=== PATIENT | female | born 1995 | race Caucasian/White ===

== ENCOUNTER 2019-01-09 11:27 | Emergency (ER) | payer BC ==
--- NOTE | 2019-01-09 11:36 | EDM.PDOC ---
ED HPI GENERAL MEDICAL PROBLEM - General Chief Complaint: Lower Extremity Injury/Pain Stated Complaint: RIGHT LEG INJURY Time Seen by Provider: 01/09/19 11:36 Source of Information: Reports: Patient History Limitations: Reports: No Limitations - History of Present Illness INITIAL COMMENTS - FREE TEXT/NARRATIVE: 23-year-old female presents to the ED with an acute injury to her right lateral foot. She states she was walking down a flight of stairs and missed the last one landing hard on her lateral right foot. She then did fall to the ground on top of it. She denies any other injuries. Injury just occurred within the last half hour. Is already markedly ecchymotic along the lateral aspect of her right foot. She cannot weight-bear. Onset: Today Onset Date: 01/09/19 Onset Time: 11:00 Duration: Minutes: Location: Reports: Lower Extremity, Right (Right lateral foot) Quality: Reports: Ache, Throbbing Severity: Moderate Improves with: Reports: Rest Worsens with: Reports: Movement (Trying to weight-bear) Context: Reports: Trauma (Inversion injury when she missed the last stair and then fell on top of it.). Denies: Activity, Exercise, Lifting, Sick Contact Associated Symptoms: Reports: No Other Symptoms Treatments KENNEL HAND: Reports: NSAIDS (She had taken a Motrin 600 mg just prior to the injury.) Right Feet Pain Score (Numeric/FACES): 2 - Related Data Allergies Allergy/AdvReac Type Severity Reaction Status Date / Time bee venom protein (honey bee) Allergy Cannot Verified 01/09/19 11:35 Remember Penicillins Allergy Cannot Verified 01/09/19 11:35 Remember Home Meds: Home Meds Control 1 tab PO DAILY 01/09/19 [History] Citalopram [Citalopram HBr] 20 mg PO DAILY 01/09/19 [History] Past Medical History Psychiatric History: Reports: Anxiety, Depression Review of Systems - Review of Systems Review Of Systems: See Below Constitutional: Reports: No Symptoms Eyes: Reports: No Symptoms Ears: Reports: No Symptoms Nose: Reports: No Symptoms Mouth/Throat: Reports: No Symptoms Respiratory: Reports: No Symptoms Cardiovascular: Reports: No Symptoms GI/Abdominal: Reports: No Symptoms Genitourinary: Reports: No Symptoms Musculoskeletal: Reports: Foot Pain (Right lateral foot pain see history of present illness) Skin: Reports: Bruising Neurological: Reports: No Symptoms (Marked ecchymoses right lateral foot.) Psychiatric: Reports: Depression, Anxiety ED EXAM, GENERAL - Physical Exam Exam: See Below (On citalopram and it's helping for this.) Exam Limited By: No Limitations General Appearance: Alert, WD/WN, Mild Distress Extremities: Other (Examination was limited to her right lower extremity below the knee. There is no pain on from compression of the head of the fibula. No pain in the ankle on from compression of mid shaft tib-fib. Ankle itself also shows no pain on from compression over the lateral and medial malleoli. There is marked ecchymosis and swelling over the fifth metatarsal head.) Neurological: Alert, Oriented, CN II-XII Intact, Normal Cognition Psychiatric: Normal Affect, Normal Mood Skin Exam: Warm, Dry, Intact, Normal Color, No Rash Course - Vital Signs Last Recorded V/S: Last Vital Signs Temp 36.6 C 01/09/19 11:35 Pulse 82 01/09/19 11:35 Resp 16 01/09/19 11:35 BP 147/77 H 01/09/19 11:35 Pulse Ox 99 01/09/19 11:35 - Orders/Labs/Meds Orders: Active Orders 24 hr Category Date Time Status Foot Comp Min 3V Rt [CR] Stat Exams 01/09/19 11:39 Taken - Radiology Interpretation Free Text/Narrative:: 23-year-old female presents the ED with an acute injury to her right lateral foot. She states she was walking down stairs and inverted her foot on the last stair and this caused her to fall on top of her own leg. She has marked pain and swelling over the fifth metatarsal head. Patient heard a loud crack when she fell. And tib-fib appear to be otherwise intact. And three-view x-ray of the right foot to be done. Strep Motrin 600 mg prior to the injury. - Re-Assessments/Exams Free Text/Narrative Re-Assessment/Exam: 01/09/19 12:08 x-rays confirm a nondisplaced fracture through the base of the fifth metatarsal. Therefore I placed her in a posterior slab Ortho-Glass splint. He'll be nonweightbearing crutch walking. She will elevate the foot is much as possible and ice pack over the splint today and tomorrow. She'll phone Dr. Fortune's office tomorrow to arrange a follow-up appointment for cast placement later this week. She will use Motrin 600 mg every 6 hours needed for pain relief. Departure - Departure Time of Disposition: 12:10 Disposition: Home, Self-Care 01 Condition: Fair Clinical Impression: Fracture of metatarsal bone of right foot Qualifiers: Encounter type: initial encounter Metatarsal bone: fifth Fracture type: closed Fracture alignment: nondisplaced Qualified Code(s): S92.354A - Nondisplaced fracture of fifth metatarsal bone, right foot, initial encounter for closed fracture - Discharge Information *PRESCRIPTION DRUG MONITORING PROGRAM REVIEWED*: Not Applicable *COPY OF PRESCRIPTION DRUG MONITORING REPORT IN PATIENT PATRICK: Not Applicable Referrals: Herminia Parks NP [Primary Care Provider] - Forms: ED Department Discharge Additional Instructions: Evaluation the emergent today in regards to acute injury to your right lateral foot when he missed a stair and inverted her ankle causing the foot to come in direct contact with stair. X-ray reveals a hairline fracture through the fifth metatarsal head. It is undisplaced. It is therefore Ortho-Glass splint to maintain current position of this bone until the cast to be put on in 3 or 4 days with the swelling goes down. Elevate the foot is much as possible for the next couple of days. Ice pack to the area for one half hour out of every 4 hours for 2 days to reduce swelling. 600 mg every 6 hours needed for pain relief. Nonweightbearing crutch walking until today otherwise. Please phone Dr. Fortune's office-- orthopedic surgeon tomorrow morning at [phone] to arrange an appointment to have a cast placed later this week. To just wearing a large wool stocking over top of your toes during the winter months. - My Orders Last 24 Hours: My Active Orders 01/09/19 11:39 Foot Comp Min 3V Rt [CR] Stat - Assessment/Plan Last 24 Hours: My Active Orders 01/09/19 11:39 Foot Comp Min 3V Rt [CR] Stat
--- NOTE | 2019-01-09 14:29 | CR ---
Right foot: Four views of the right foot. Comparison: No prior foot exam. Nondisplaced fracture is identified within the base of the fifth metatarsal. No additional fracture or other bony abnormality is seen. Impression: 1. Fifth metatarsal fracture as noted above. Diagnostic code #3
== END 2019-01-09 13:00 | disposition home or self-care (01) ==
LOC: JD.ED 11:27
DX: S92.354A Nondisplaced fracture of fifth metatarsal bone, right foot, initial encounter for closed fracture (principal); F41.9 Anxiety disorder, unspecified; F32.9 Major depressive disorder, single episode, unspecified; W10.9XXA Fall (on) (from) unspecified stairs and steps, initial encounter; Z79.3 Long term (current) use of hormonal contraceptives; Z79.899 Other long term (current) drug therapy
CPT/HCPCS: 29515; 73630-26-RT; 73630-RT; 99283; 99283-25

== ENCOUNTER 2019-03-11 15:24 | Emergency (ER) | payer BC ==
[2019-03-11] MEDS ORDERED: LORazepam 0.5 MG Tab PO ONE (16:06)
[2019-03-11] MEDS ORDERED: Ondansetron 4 MG Tab.DIS PO ONE (16:06)
--- NOTE | 2019-03-11 16:22 | EDM.PDOCBH ---
ED HPI GENERAL MEDICAL PROBLEM - General Chief Complaint: General Stated Complaint: MAYBE A PANIC ATTACK Time Seen by Provider: 03/11/19 15:44 Source of Information: Reports: Patient, RN Notes Reviewed History Limitations: Reports: No Limitations - History of Present Illness INITIAL COMMENTS - FREE TEXT/NARRATIVE: Patient is a 24-year-old female who presents to the ED for the evaluation of a possible anxiety attack. The patient states that this started approximately half hour ago, this come on sudden. The patient states that she has been trying to eat more healthy, and has not eaten a whole lot today as well. She notes that she did vomit once on the way to the ER. She feels her hands and legs are tingly, and that her extremities were becoming numb. The mother is present, and states that she did have some coffee this morning, and the patient has had-like episodes with this while drinking coffee. The patient notes that she is on citalopram for generalized anxiety. The patient notes that she was lightheaded with this episode as well. She also states that she feels as if everything is shaking even on the inside. She is hemodynamically stable at time of initial exam. Abdomen Pain Score (Numeric/FACES): 2 - Related Data Allergies Allergy/AdvReac Type Severity Reaction Status Date / Time bee venom protein (honey bee) Allergy Cannot Verified 03/11/19 15:31 Remember Penicillins Allergy Cannot Verified 03/11/19 15:31 Remember Home Meds: Home Meds Control 1 tab PO DAILY 01/09/19 [History] Citalopram [Citalopram HBr] 20 mg PO DAILY 01/09/19 [History] LORazepam [Ativan] 0.5 mg PO Q6H PRN #12 tablet 03/11/19 [Rx] Ondansetron [Zofran ODT] 4 mg PO Q8H PRN #28 tab.dis 03/11/19 [Rx] Past Medical History - Past Health History Medical/Surgical History: Denies Medical/Surgical History HEENT History: Reports: Other (See Below) Other HEENT History: Dental surgery as Psychiatric History: Reports: Anxiety, Depression Social & Family History - Tobacco Use Smoking Status *Q: Never Smoker - Recreational Drug Use Recreational Drug Use: No ED ROS GENERAL - Review of Systems Review Of Systems: See Below Constitutional: Denies: Fever, Chills HEENT: Reports: No Symptoms Respiratory: Reports: No Symptoms Cardiovascular: Reports: No Symptoms Endocrine: Reports: No Symptoms GI/Abdominal: Reports: Nausea, Vomiting. Denies: Diarrhea : Reports: No Symptoms Musculoskeletal: Reports: Other (generalized myalgia) Skin: Reports: No Symptoms Neurological: Reports: No Symptoms Psychiatric: Reports: Anxiety Hematologic/Lymphatic: Reports: No Symptoms Immunologic: Reports: No Symptoms ED EXAM, BEHAVIORAL HEALTH - Physical Exam Exam: See Below Exam Limited By: No Limitations General Appearance: Alert, WD/WN, No Apparent Distress, Anxious Eye Exam: Bilateral Eye: EOMI, Normal Inspection, PERRL Ears: Normal External Exam Nose: Normal Inspection Throat/Mouth: Normal Inspection, Normal Lips, Normal Teeth, Normal Oropharynx, Normal Voice, No Airway Compromise Head: Atraumatic, Normocephalic Neck: Normal Inspection Respiratory/Chest: No Respiratory Distress, Lungs Clear, Normal Breath Sounds, No Accessory Muscle Use, Chest Non-Tender Cardiovascular: Normal Peripheral Pulses, Regular Rate, Rhythm, No Murmur GI/Abdominal: Normal Bowel Sounds, Soft, Non-Tender, No Distention, No Mass Back Exam: Normal Inspection Extremities: Normal Inspection, Normal Capillary Refill Neurological: Alert, Normal Mood/Affect, Normal Cognition, Normal Reflexes, No Motor/Sensory Deficits, Oriented x 3 Psychiatric: Alert, Normal Cognition, Normal Mood, Oriented, Other (patient is visibly anxious on ED cot) Skin Exam: Warm, Dry, Intact, Normal color (Somewhat pale), No rash COURSE, BEHAVIORAL HEALTH COMP - Course Vital Signs: Last Vital Signs Temp 97.0 F 03/11/19 15:31 Pulse 79 03/11/19 15:31 Resp 20 03/11/19 15:31 BP 113/73 03/11/19 15:31 Pulse Ox 100 03/11/19 15:31 Orders, Labs, Meds: Active Orders 24 hr Category Date Time Status Peripheral IV Care [RC] . DIRECTED Care 03/11/19 17:16 Ordered Sodium Chloride 0.9% [Saline Flush] Med 03/11/19 17:16 Ordered 10 ml FLUSH ASDIRECTED PRN Peripheral IV Insertion Adult [OM.PC] Routine Oth 03/11/19 17:15 Ordered Medication Orders Sodium Chloride (Saline Flush) 10 ml FLUSH ASDIRECTED PRN PRN Reason: Keep Vein Open Last Admin: 03/11/19 17:26 Dose: 10 ml Laboratory Tests 03/11/19 03/11/19 Range/Units 18:54 18:54 WBC 11.90 H (3.98-10.04) K/mm3 RBC 4.64 (3.98-5.22) M/mm3 Hgb 13.2 (11.2-15.7) gm/L Hct 37.8 (34.1-44.9) % MCV 81.5 (79.4-94.8) fl MCH 28.4 (25.6-32.2) pg MCHC 34.9 (32.2-35.5) g/dl RDW Std Deviation 37.6 (36.4-46.3) fL Plt Count 297 (182-369) K/mm3 MPV 10.1 (9.4-12.3) fl Neutrophils % (Manual) 88 H (40-60) % Band Neutrophils % 1 (0-10) % Lymphocytes % (Manual) 9 L (20-40) % Atypical Lymphs % 0 % Monocytes % (Manual) 2 (2-10) % Eosinophils % (Manual) 0 L (0.7-5.8) % Basophils % (Manual) 0 L (0.1-1.2) Platelet Estimate Adequate RBC Morph Comment Normal Sodium 136 (136-145) mEq/L Potassium 3.4 L (3.5-5.1) mEq/L Chloride 100 (98-107) mEq/L Carbon Dioxide 24 (21-32) mEq/L Anion Gap 15.4 H (5-15) BUN 7 (7-18) mg/dL Creatinine 0.9 (0.55-1.02) mg/dL Est Cr Clr Drug Dosing 84.67 mL/min Estimated GFR (MDRD) > 60 (>60) mL/min BUN/Creatinine Ratio 7.8 L (14-18) Glucose 103 (74-106) mg/dL Calcium 9.7 (8.5-10.1) mg/dL Total Bilirubin 0.4 (0.2-1.0) mg/dL AST 18 (15-37) U/L ALT 20 (14-59) U/L Alkaline Phosphatase 53 (46-116) U/L Total Protein 8.5 H (6.4-8.2) g/dl Albumin 4.0 (3.4-5.0) g/dl Globulin 4.5 gm/dL Albumin/Globulin Ratio 0.9 L (1-2) TSH 3rd Generation 1.366 (0.358-3.74) uIU/mL Medications Generic Name Dose Route Start Last Admin Trade Name Freq PRN Reason Stop Dose Admin Sodium Chloride 10 ml 03/11/19 17:16 03/11/19 17:26 Saline Flush FLUSH 10 ml ASDIRECTED PRN Administration Keep Vein Open Discontinued Medications Generic Name Dose Route Start Last Admin Trade Name Freq PRN Reason Stop Dose Admin Lorazepam 0.5 mg 03/11/19 16:06 03/11/19 16:41 Ativan PO 03/11/19 16:07 0.5 mg ONETIME ONE Administration Lorazepam 0.5 mg 03/11/19 17:16 03/11/19 17:25 Ativan IVPUSH 03/11/19 17:17 0.5 mg ONETIME ONE Administration Ondansetron HCl 4 mg 03/11/19 16:06 03/11/19 16:11 Zofran Odt PO 03/11/19 16:07 4 mg ONETIME ONE Administration Discharge vs Psych Eval/Treatment:: 03/11/19 16:10 Patient presents to the ED for the evaluation of a possible anxiety attack. The patient is visibly anxious in the room, and her O2 sats are at around 100%, her heart rate has been in the 70s per mom's report, at time of exam it was into the lower 90s. The patient does not have any history of any sort of heart issues that would suggest anything otherwise. I have ordered 0.5 mg by mouth Ativan and 4 mg ODT Zofran for initial management, will reassess after the meds have been given time to work. I did make it known to the patient that she should no longer drink caffeinated coffee. The patient is amenable to this plan. 03/11/19 17:14 The patient was reassessed at bedside and states that she had emesis shortly after taking the Ativan roughly 10 minutes ago. So she is unsure if she actually got any of the medication at this time. She did state that she was able to tolerate the oral Zofran. At this time I will order an IV, 0.5 IV Ativan to be given and some lab work for evaluation. 03/11/19 20:00 Lab work is essentially within normal limits, her potassium is mildly low at 3.4 but this is shouldn't be bothersome at this time. I have made the patient aware of her lab values, and we'll discharge her with a few tablets Ativan and some Zofran for management at home. The patient is amenable to this plan. Departure - Departure Time of Disposition: 20:01 Disposition: Home, Self-Care 01 Condition: Fair Clinical Impression: Panic attack - Discharge Information *PRESCRIPTION DRUG MONITORING PROGRAM REVIEWED*: No *COPY OF PRESCRIPTION DRUG MONITORING REPORT IN PATIENT PATRICK: No Instructions: Panic Attack, [id number] Referrals: Herminia Parks NP [Primary Care Provider] - Forms: ED Department Discharge Additional Instructions: You have been evaluated in the ED tonight for your anxiety attack. You have been given a medicine called Ativan, this helped provide her some relief from your anxiety. You are also given a medicine called Zofran this was for nausea. You have been provided with a prescription for both of these, these have been electronically prescribed to the [place] [facility] located [facility] the [facility]. Please take as directed. Please try to refrain from intake of caffeinated beverages, as your body seems to be sensitive to caffeine. You may take some [id number] meclizine, which is commonly branded as Antivert or Bonine, please take 12.5 mg as needed for feelings of vertigo. Please return to the ED if your symptoms should change or worsen. - My Orders Last 24 Hours: My Active Orders 03/11/19 17:15 Peripheral IV Insertion Adult [OM.PC] Routine 03/11/19 17:16 Peripheral IV Care [RC] . DIRECTED Sodium Chloride 0.9% [Saline Flush] 10 ml FLUSH ASDIRECTED PRN - Assessment/Plan Last 24 Hours: My Active Orders 03/11/19 17:15 Peripheral IV Insertion Adult [OM.PC] Routine 03/11/19 17:16 Peripheral IV Care [RC] . DIRECTED Sodium Chloride 0.9% [Saline Flush] 10 ml FLUSH ASDIRECTED PRN
[2019-03-11] MEDS ORDERED: LORazepam 2 MG/ML SDV IVPUSH ONE (17:16)
[2019-03-11] MEDS ORDERED: Sodium Chloride 0.9% 10 ML Syringe FLUSH PRN (17:16)
== END 2019-03-11 20:15 | disposition home or self-care (01) ==
LOC: JD.ED 15:24
DX: F41.0 Panic disorder [episodic paroxysmal anxiety] (principal); F32.9 Major depressive disorder, single episode, unspecified; Z79.899 Other long term (current) drug therapy; Z88.0 Allergy status to penicillin; Z91.030 Bee allergy status
CPT/HCPCS: 36415; 80053; 84443; 85007; 85027; 96374; 99284; A9270; J2060

== ENCOUNTER 2020-07-25 02:14 | Emergency (ER) | payer BC | END 2020-07-25 02:27 | LOC: JD.ED 02:14 | DX: Z53.21 Procedure and treatment not carried out due to patient leaving prior to being seen by health care provider (principal) ==